=== PATIENT | female | born 1990 ===

== ENCOUNTER 2021-01-19 08:00 | Emergency (ER) | payer SELFPAY ==
[2021-01-19 08:31] VITALS: BP 131/75
[2021-01-19 08:55] LABS: Bilirubin,Urine NEG (Negative); Blood,Urine NEG (Negative); Color,Urine Yellow (Yellow); Mucus,Urine 1+ /HPF; Protein,Urine <15 mg/dL mg/dL (Negative); Urobilinogen,Urine < 2.0 mg/dL (<2.0)
[2021-01-19 10:35] LABS: HCG Qualitative,Urine Negative (Negative)
--- NOTE | 2021-01-19 10:53 | Emergency Department Report ---
ED Female HPI - General Chief complaint: Abdominal Pain Stated complaint: VOMITTING,NAUSEA,ABD PAIN Time Seen by Provider: 01/19/21 09:04 Source: patient Mode of arrival: Ambulatory Limitations: No Limitations - History of Present Illness Initial comments: Ms. Duran is a 30-year-old obese female presents to the emergency room stating that yesterday she vomited twice and had lower abdominal cramping associated with nausea. Her symptoms have since resolved but she is concerned that she may be she currently denies any vomiting and diarrhea today her pain is 0 she denies any past medical history. Consistency: now resolved Improves with: none Worsens with: none - Related Data Sexually active: Yes Previous Rx's Medication Instructions Recorded Last Taken Type Sulfamethoxazole/Trimethoprim 1 each PO BID 3 Days #6 tablet 01/19/21 Unknown Rx [Bactrim DS TAB] Allergies Allergy/AdvReac Type Severity Reaction Status Date / Time No Known Allergies Allergy Unverified 01/19/21 08:11 ED Review of Systems ROS: Stated complaint: VOMITTING,NAUSEA,ABD PAIN Other details as noted in HPI Comment: All other systems reviewed and negative Constitutional: no symptoms reported ENT: denies: ear pain, throat pain, dental pain, hearing loss, epistaxis Respiratory: denies: cough, shortness of breath, SOB with exertion, wheezing Cardiovascular: denies: chest pain, palpitations, dyspnea on exertion, edema, syncope, paroxysmal nocturnal dyspnea Endocrine: denies: intolerance to cold, intolerance to heat, unexplained weight gain Gastrointestinal: abdominal pain, nausea, vomiting. denies: diarrhea, constipation, hematemesis Musculoskeletal: denies: back pain Neurological: denies: headache, numbness Psychiatric: denies: auditory hallucinations ED Past Medical Hx - Past Medical History Previous Medical History?: Yes Additional medical history: heart murmur - Surgical History Past Surgical History?: No - Social History Smoking Status: Current Every Day Smoker - Medications Home Medications: Home Medications Medication Instructions Recorded Confirmed Last Taken Type Sulfamethoxazole/Trimethoprim 1 each PO BID 3 Days #6 tablet 01/19/21 Unknown Rx [Bactrim DS TAB] ED Physical Exam - General Limitations: No Limitations General appearance: alert, in no apparent distress - Head Head exam: Present: atraumatic - Eye Eye exam: Present: normal appearance - ENT ENT exam: Present: normal exam - Neck Neck exam: Present: normal inspection - Respiratory Respiratory exam: Present: normal lung sounds bilaterally - Cardiovascular Cardiovascular Exam: Present: regular rate, normal heart sounds - GI/Abdominal GI/Abdominal exam: Present: soft, normal bowel sounds. Absent: distended, tenderness, guarding, rebound - Extremities Exam Extremities exam: Present: normal inspection - Back Exam Back exam: Present: normal inspection. Absent: CVA tenderness (R), CVA tenderness (L) - Neurological Exam Neurological exam: Present: alert, oriented X3 - Psychiatric Psychiatric exam: Present: normal affect - Skin Skin exam: Present: warm, dry, intact, normal color ED Course Vital Signs 01/19/21 01/19/21 08:08 08:14 Temperature 98.1 F Pulse Rate 105 H Respiratory 18 Rate Blood Pressure 131/75 O2 Sat by Pulse 94 98 Oximetry - Reevaluation(s) Reevaluation #1: 01/19/21 10:55 Urine is negative urinalysis shows signs of UTI. Findings discussed with patient she will be discharged home with antibiotics for urinary tract infection. Patient in no distress well-appearing and agrees with plan of care ED Medical Decision Making - Medical Decision Making 30-year-old female with a 1 day complaint of vomiting nausea and lower abdominal cramping. On evaluation patient had a negative test she does have white cells in her urine indicating a urinary tract infection in the emergency room her symptoms of abdominal cramping nausea and vomiting had resolved. Plan to discharge patient home with Bactrim DS 1 tablet twice daily for 3 days to treat UTI - Differential Diagnosis UTI Critical Care Time: No Critical care attestation.: If time is entered above; I have spent that time in minutes in the direct care of this critically ill patient, excluding procedure time. ED Disposition Clinical Impression: Urinary tract infection Qualifiers: Urinary tract infection type: site unspecified Hematuria presence: without hematuria Qualified Code(s): N39.0 - Urinary tract infection, site not specified Disposition: - TO HOME OR SELFCARE Is pt being admited?: No Does the pt Need Aspirin: No Condition: Stable Instructions: Urinary Tract Infection, Adult, Antibiotic Medicine, Adult, Abdominal Pain (ED) Additional Instructions: Drink plenty water at least 8 to 10 glasses daily. Do not hold your urine empty your bladder frequently void especially after sex. Take all the antibiotic. Follow-up with your PCP in 3 to 5 days. Prescriptions: Sulfamethoxazole/Trimethoprim [Bactrim DS TAB] 1 each PO BID 3 Days #6 tablet Referrals: SAE VUONG MD [Staff Physician] - 3-5 Days PRIMARY CAREMD [Primary Care Provider] - 3-5 Days Time of Disposition: 10:58
== END 2021-01-19 12:10 | disposition home or self-care (01) ==
LOC: ED 08:00
DX: N39.0 Urinary tract infection, site not specified (principal); F17.200 Nicotine dependence, unspecified, uncomplicated; Z79.899 Other long term (current) drug therapy
CPT/HCPCS: 81001; 81025; 87086; 99283